=== PATIENT | male | born 1995 | race African-American/Black ===

== ENCOUNTER 2024-09-23 10:13 | Emergency (ER) | payer SELFPAY ==
[~2024-09-23] VITALS: Ht 180.3 cm; Wt 88.6 kg
[2024-09-23] MEDS ORDERED: DOXYCYCLINE HY100 MG PO (10:52)
[2024-09-23] MEDS: CEFTRIAXONE 500 MG VIAL IM ONE (10:58)
[2024-09-23] MEDS: AZITHROMYCIN 250 MG TAB PO ONE (10:58)
[2024-09-23 11:18] VITALS: PULSE 64; RESP 18; TEMP 98.6; O2SAT 100
[2024-09-25 16:11] LABS: CHLAMYDIA NUC AMP Positive (Negative)
[2024-09-25 17:29] LABS: NEISSERIA GONORRHOEAE, NAA Negative (Negative)
== END 2024-09-23 11:12 | disposition home or self-care (01) ==
LOC: FSED 10:38
DX: R36.9 Urethral discharge, unspecified (principal); F17.210 Nicotine dependence, cigarettes, uncomplicated
CPT/HCPCS: 81003; 87491; 87591; 96372; 99283; J0696